=== PATIENT | female | born 1985 ===

== ENCOUNTER 2022-04-06 09:06 | Outpatient (RCR) | payer MEDICAID, SELFPAY ==
--- NOTE | 2022-04-06 10:10 | PTOPEVAL1 ---
Assessment and note entered by You Rosario, PT Evaluation Information Assessment Status Evaluation Diagnosis lightheadedness and dizziness Onset 2019 Subjective Information Patient reports she is experiencing lightheadedness and dizziness when getting up and moving. She reports she feels it most at morning and after working out. About 2 weeks ago she was giving her 5 year old daughter a bath and she felt lightheaded and fell back. This is not her only fall. She went to the doctor who is having her come here to therapy along with blood tests, a sleep study, and heart test. Reported Pain Level Pain Score 0: Self Report Assessment PT Clinical Summary Juju is a 36 year old female coming into the clinic with reports of dizziness and light headedness. Besides vertical saccades unable to elicit any dizziness. Patient's orthostatics during evaluation were supine 121/68, sitting 125/ 72, and standing 112/67 so borderline orthostatic hypotension sitting to standing. Gave patient habituation exercises, but it appears to be more blood pressure related than BPPV. Patient not kicked up for continued physical therapy. Plan of Care PT Services Indicated No Treatment Frequency and evaluation only Duration These treatments will address the objective and functional deficits as defined above. The patient will be advanced safely and appropriately in order for the patient to progress towards his/her prior level of function. Additional exercises will be introduced and as well as a comprehensive home exercise program upon discharge, if needed, ?to ensure carryover of functional gains achieved in the clinic. This treatment plan has been reviewed and agreement upon by the patient.
--- NOTE | 2022-04-06 10:12 | PTOPEVDC ---
Assessment and note entered by You Rosario, PT Thank you for referring Juju Swan to [facility].? An evaluation has been completed. No further treatment is needed. Evaluation Information Assessment Status Evaluation Diagnosis lightheadedness and dizziness Onset 2019 Subjective Information Patient reports she is experiencing lightheadedness and dizziness when getting up and moving. She reports she feels it most at morning and after working out. About 2 weeks ago she was giving her 5 year old daughter a bath and she felt lightheaded and fell back. This is not her only fall. She went to the doctor who is having her come here to therapy along with blood tests, a sleep study, and heart test. Reported Pain Level Pain Score 0: Self Report Assessment PT Clinical Summary Juju is a 36 year old female coming into the clinic with reports of dizziness and light headedness. Besides vertical saccades unable to elicit any dizziness. Patient's orthostatics during evaluation were supine 121/68, sitting 125/ 72, and standing 112/67 so borderline orthostatic hypotension sitting to standing. Gave patient habituation exercises, but it appears to be more blood pressure related than BPPV. Patient not picked up for continued physical therapy. Plan of Care PT Services Indicated No Treatment Frequency and evaluation only Duration
== END 2022-04-06 14:41 | disposition home or self-care (01) ==
LOC: ANHPT 09:06
DX: H81.13 Benign paroxysmal vertigo, bilateral (principal)
CPT/HCPCS: 97161

== ENCOUNTER 2023-12-10 10:54 | Outpatient (CLI) | payer OTHER, SELFPAY | END 2023-12-10 10:55 | disposition home or self-care (01) | DX: H90.3 Sensorineural hearing loss, bilateral (principal) | CPT/HCPCS: 92557; 92567 ==